=== PATIENT | male | born 1945 | race Caucasian/White ===

== ENCOUNTER → 2016-11-18 | Day surgery (SDC) | payer OTHER ==
[~2016-11-18] VITALS: Ht 182.9 cm; Wt 136.1 kg
[~2016-11-18] MED LIST: GLPZ5T PO; INSU100I; LISI10TA PO; Lactated Ringer's 1,000 ML IV ONE; METF500T4 PO; MeTOProlol 1 mg/mL 5 mL Inj ONE; Ondansetron 2 mg/mL 2 mL Inj ONE; Propofol 10,000 mCg/mL 20 mL Inj ONE; WARF1TAB6 PO
[2016-11-18 09:24] VITALS: BP 154/87; PULSE 102; RESP 16; O2SAT 97
--- NOTE | 2016-11-18 10:19 | PCM.HPANE ---
Patient Data Date of Service: Nov 18, 2016 Surgeon Admitting Provider: Attending Provider:Dodie Estrella MD [facility] Other Provider:Porfirio Paez Anesthesia Reason for Visit History Of Colon Polyps Ht/WT & BMI Height (Feet): 6 Height (Inches): 0 Weight (Kilograms): 136.08 Body Mass Index 40.00 Allergies Uncoded Allergies: PCN (Allergy, Unknown, hives, 11/18/16) Past Anesthesia History Anesthesia History: Positive for:: Anesthesia Reactions (nausea) Additional Information: PONV Diabetes History Hx Diabetes?: Yes Current Bedside Blood Glucose: 181 MRSA MRSA: No Medications Blood Thinner: Coumadin Last Dose Blood Thinner: Nov 13, 2016 Reported Medications Warfarin Sodium 1 Mg Tablet1 Mg PO DAILY 30 Days Ref 0 11/18/16 Insulin Aspart (NovoLOG U-100 Pen)100 Unit/Ml Insuln.pen 11/18/16 Metformin 500 Mg [id number] Mg PO DAILY Ref 0 11/18/16 Lisinopril 10 Mg [id number] Mg PO DAILY 30 Days Ref 0 11/18/16 Glipizide 5 Mg Tablet5 Mg PO DAILY 30 Days 11/18/16 History History of ENT Problems?: No HEENT History: Denies:: Abnormal Airway Denture Type: None Teeth Condition: Within Normal Limits Hx of Heart Problems?: Yes Cardiovascular History: Positive for:: Atrial Fibrillation Other Cardiac History: blood clots in his legs Hx of Respiratory Problem?: No Respiratory History: Denies:: Asthma Hx Neurologic Problems?: Yes Neurological History: Denies:: CVA Other History/Comments PTSD Hx of GI Problems?: Yes Hx of Problems?: No HX of Peritoneal Dialysis: No Male Hx: Denies:: Prostate Problems Skin History: Denies:: History Skin Disorders? Hx Musculoskeletal Problems?: Yes Musculoskeletal History: Positive for:: Osteoarthritis Hx of Psycho/Social Problems?: Yes Other History/Comment PTSD Hx Surgeries?: Yes (arm) Hx Any Other Health Problems?: Yes Hx Diabetes: YesBedside Blood Glucose: 181 Hx Alcohol Use: Yes (occasionally) Stop/Bang Treated for Sleep Apnea?: Yes Do You Have a CPAP Machine?: Yes S-Snoring: Do You Snore Loudly: Yes T-Tired: feel tired, fatigued: No O-Obsered: Observed not breath: No P-Blood Pressure: treated: Yes B- Body Mass Index > 35 kg/m2: Yes A- Age over 50: Yes N- Neck Large Circumference: Yes G- Gender Male: Yes [place] Risk Assessment: High Risk, =/>3 Yes Risk Assessment Category Category 1A: Patient has history of documented sleep apnea, and HAS NOT received any narcotic, sedative or anesthesia administration during this stay. Category 1B: Patient has history of documented sleep apnea, and HAS received any narcotic , sedative or anesthesia administration during this stay Category 2: Patient has SUSPECTED Obstructive Sleep Apnea, and HAS received any narcotic , sedative or anesthesia administration during this stay. Category 3: Patient has SUSPECTED Obstructive Sleep Apnea and HAS NOT received narcotic, sedative or anesthesia administration during this stay. Category 4: Outpatient in Procedural Areas with known sleep apnea or who screen positive for High Risk via the STOP/BANG questionnaire. Exam Exam Vital Signs Vital Signs Date Time Temp Pulse Resp B/P Pulse Ox O2 Delivery O2 Flow Rate FiO2 11/18/16 09:24 102 16 154/87 97 Room Air General Appearance: Alert, Oriented X3 HEENT/AIRWAY: MP 1 Lungs: Clear to Auscultation Heart: Exam Unremarkable Meds/Labs/Diagnostics Admission Meds Current Medications Lactated Ringer's (Lr) 1,000 ml @ 10 mls/hr Q24H ONCE IV Last administered on 11/18/16t 09:33; Start 11/18/16 at 07:54; Stop 11/19/16 at 07:53 Bedside Blood Glucose: 181 Plan Impression Patient chart reviewed, patient interviewed and anesthestic plan with risks, benefits, and alternatives discussed, and informed consent obtained. NPO per Anesth. Guidelines: Yes ASA Physical Status: ASA2 Mod Systemic Disease Anesthetic Plan: MAC Bene/Risks/Altern/Consents: Yes HP Complete Prior to Induction: Yes Miguel Angel Cerrato MD Nov 18, 2016 10:19
[2016-11-18 10:39] VITALS: BP 146/64; PULSE 82; RESP 12; O2SAT 97
[2016-11-18 10:51] VITALS: BP 133/65; PULSE 87; RESP 14; O2SAT 95
[2016-11-18 10:56] VITALS: BP 162/96; PULSE 87; RESP 12; O2SAT 98
--- NOTE | 2016-11-18 11:23 | ENDO ---
[address] [address] ENDOSCOPY PROCEDURE PATIENT: TACOS TENORIO : 1945 MR#: [id number] ADMIT: 11/18/2016 JOB ID: [id number] PROCEDURE: Colonoscopy. INDICATION: Patient with a history of colon polyps. ANESTHESIA: Patient's ASA classification, Mallampati score, and medications as per anesthesia note. INSTRUMENT USED: PCF H 180 AL PREPARATION QUALITY: Poor. PROCEDURE DETAILS: After informed consent was obtained, the patient was brought into the GI suite, where he was placed on oxygen via nasal cannula and monitored with continuous pulse oximeter, telemetry, and blood pressure monitoring. A time-out was performed, then he was placed in the left lateral decubitus position and medications were administered for sedation. Digital rectal exam was performed, which was unremarkable. The colonoscope was then inserted into the rectum and advanced under direct visualization to the cecum, which was identified by the presence of the ileocecal valve and appendiceal orifice. Once the cecum was reached, the colonoscope was withdrawn back into the rectum as the mucosa and lumen were examined. In the rectum, retroflexion was performed. Following retroflexion, the remaining air in the rectum was suctioned and the procedure was completed. FINDINGS: 1. There was a thin layer of stool coating the entire colon. In the cecum and ascending colon this was quite adherent and I was unable to completely remove this thin film of stool. 2. In the cecum there was a diminutive polyp that was removed with cold biopsy forceps. 3. In the ascending colon there were five polyps that were all removed with a cold snare. 4. In the transverse colon there was an approximately 5 mm sessile polyp that was removed with a hot snare. 5. In the descending colon there were three polyps that were all removed with a hot snare. All three polyps measured approximately 5-7 mm. IMPRESSION: 1. Cecal polyp. 2. Five ascending colon polyps. 3. One transverse colon polyp. 4. Three descending colon polyps. RECOMMENDATIONS: 1. Avoid NSAIDs and anticoagulants for 72 hours. 2. Repeat colonoscopy in one year. COMPLICATIONS: None. ESTIMATED BLOOD LOSS: Less than 5 mL.
--- NOTE | 2016-11-18 11:33 | PCM.ANEP1 ---
Post Anesthesia PACU Phase 1 Assessment Vital Signs Vital Signs Date Time Temp Pulse Resp B/P Pulse Ox O2 Delivery O2 Flow Rate FiO2 11/18/16 10:56 87 12 162/96 98 Room Air 11/18/16 10:51 87 14 133/65 95 Room Air 11/18/16 10:39 82 12 146/64 97 Room Air 11/18/16 09:24 102 16 154/87 97 Room Air Anesthetic Administered: MAC Level of Alertness: Awake, talking Pain: No Nausea or Vomiting: No CV Function & Hydration Stable: Yes Airway Device: Oxygen Delivery: Room Air Lungs: Clear to Auscultation PACU Phase 2 Assessment Complications: No Follow up Care: N/A Patient Instructions Provided: N/A Miguel Angel Cerrato MD Nov 18, 2016 11:33
--- NOTE | 2016-11-23 11:13 | PATH ---
SURGICAL PATHOLOGY Attending Physician:Jia Palencia CASE STATUS: Signed Out PATIENT NAME: TACOS TENORIO PID: [id number] : 1945 DATE COLLECTED:11/18/2016 00:00 SPECIMEN: 1: Colon, Biopsy 2: Colon, Polyp 3: Colon, Polyp 4: Colon, Polyp CLINICAL HISTORY: POLYP 1). CECUM 2). ASCENDING COLON POLYP 3). TRANSVERSE COLON POLYP 4). DESCENDING COLON POLYP FINAL DIAGNOSIS: 1. Cecal Polyp, Biopsy: Tubular adenoma. 2. Ascending Colon Polyp, Biopsy: Tubular adenoma. 3. Transverse Colon Polyp, Biopsy: Colonic mucosa with no diagnostic abnormality, consistent with polypoid redundancy. 4. Descending Colon Polyp, Biopsy: Tubular adenoma. ICD10: D12.6 GROSS DESCRIPTION: The specimen is received in four formalin filled containers labeled with the patient's name. 1). The specimen is labeled "cecum" and consists of a 0.2 x 0.1 x 0.1 CM portion of tissue which is entirely submitted in cassette 1A. 2). The specimen is labeled "ascending colon polyp" and consists of multiple portions of tissue which aggregate to 0.3 x 0.2 x 0.2 CM. The specimen is entirely submitted in cassette 2A. 3). The specimen is labeled "transverse colon polyp" and consists of a 0.3 x 0.2 x 0.2 CM portion of tissue which is entirely submitted in cassette 3A. 4). The specimen is labeled "descending colon polyp" and consists of multiple portions of tissue which aggregate to 0.6 x 0.6 x 0.5 CM. The specimen is entirely submitted in cassette 4A. 11/19/2016DC ICD-9 CODES: CPT CODES: 1: 60386 2: 20178 3: 77679 4: 57650 Electronically Signed Out Justo Harper MD, Ph.D. [facility] Pathology [facility] [address] [place] [address], [place] [address] Technical component performed at [facility], [facility] [address], [place], [address]
== END | disposition home or self-care (01) ==
LOC: END 00:31
PROVIDERS: ATTEND Internal Medicine Gastroenterology
DX: Z12.11 Encounter for screening for malignant neoplasm of colon (principal); Z86.010 Personal history of colon polyps; D12.0 Benign neoplasm of cecum; D12.2 Benign neoplasm of ascending colon; D12.3 Benign neoplasm of transverse colon; D12.4 Benign neoplasm of descending colon; I48.91 Unspecified atrial fibrillation; E11.9 Type 2 diabetes mellitus without complications; M19.90 Unspecified osteoarthritis, unspecified site; E66.01 Morbid (severe) obesity due to excess calories; Z79.4 Long term (current) use of insulin; Z79.01 Long term (current) use of anticoagulants; Z87.891 Personal history of nicotine dependence; Z68.42 Body mass index [BMI] 45.0-49.9, adult
CPT/HCPCS: 45380; 45385; J2405; J2704; J7120